=== PATIENT | male | born 1955 | race African-American/Black ===

== ENCOUNTER 2018-06-01 07:42 | Emergency (ER) | payer OTHER, MEDICARE ==
[~2018-06-01] VITALS: Ht 177.8 cm; Wt 82.0 kg
[2018-06-01] MEDS ORDERED: ALBUTEROL (0.083%) 2.5MG/3ML NEB HHN STA (08:00)
[2018-06-01] MEDS ORDERED: PREDNISONE 20MG TABLET PO STA (08:00)
[2018-06-01] MEDS ORDERED: IPRATROPIUM BROMIDE (0.02%) 0.5MG/2.5ML NEB HHN STA (08:00)
[2018-06-01] MEDS ORDERED: IPRATROPIUM/ALBUTEROL 0.5-3(2.5)MG/3ML NEB ONE (10:28)
[2018-06-01 10:45] LABS: *AMPHETAMINES SCREEN URINE NEGATIVE (NEGATIVE); *BARBITURATES SCREEN URINE NEGATIVE (NEGATIVE); *BENZODIAZEPINES SCREEN URINE NEGATIVE (NEGATIVE); CANNABINOID URINE SCREEN NEGATIVE (NEGATIVE); OPIATES URINE SCREEN NEGATIVE (NEGATIVE)
[2018-06-01 10:46] LABS: *COCAINE SCREEN URINE PRESUMTIVE POSITIVE (NEGATIVE); METHADONE URINE SCREEN NEGATIVE (NEGATIVE)
[2018-06-01 10:49] VITALS: BP 162/100
[2018-06-01 10:52] LABS: PHENCYCLIDINE URINE SCREEN NEGATIVE (NEGATIVE)
== END 2018-06-01 10:52 | disposition left against medical advice (07) ==
LOC: ER 07:52
DX: J44.1 Chronic obstructive pulmonary disease with (acute) exacerbation (principal); F14.10 Cocaine abuse, uncomplicated; I10 Essential (primary) hypertension
CPT/HCPCS: 71045; 80305; 93005; 94640; 99285; J7512; J7611; J7620